=== PATIENT | male | born 1985 | race Two or more races ===

== ENCOUNTER 2022-04-17 11:33 | Emergency (ER) | payer OTHER ==
[~2022-04-17] VITALS: Ht 165.1 cm; Wt 86.4 kg
[2022-04-17] MEDS ORDERED: DONNATAL/LIDOCAINE/MAALOX 30 ML SUSP PO ONE (12:15)
[2022-04-17] MEDS ORDERED: BELLADONNA ALK/PHENOBARBITAL 5 ML UDC ONE (12:23)
[2022-04-17] MEDS ORDERED: LIDOCAINE VISC 2% SOLN 15 ML UDC ONE (12:24)
[2022-04-17] MEDS ORDERED: MAGNESIUM/ALUMINUM/SIMETHICONE 30 ML UDC ONE (12:24)
[2022-04-17] MEDS ORDERED: IOPAMIDOL 370 MG/ML 100 ML INFUS..BTL INJ ONE (12:54)
[2022-04-17] MEDS ORDERED: METRONIDAZOLE 500MG/NS 100ML 100 ML IV ONE ×2 (13:30→13:54)
[2022-04-17] MEDS ORDERED: SODIUM CHLORIDE 0.9% 1000ML 1,000 ML IV STA (13:30)
[2022-04-17] MEDS ORDERED: KETOROLAC TROMETHAMINE 30 MG/ML VIAL IV STA (13:32)
[2022-04-17] MEDS ORDERED: SODIUM CHLORIDE 0.9% 1000ML 1,000 ML ONE (13:54)
[2022-04-17] MEDS ORDERED: ONDANSETRON HCL INJ 2MG/ML 2ML 2 MG/ML VIAL IV STA (13:57)
[2022-04-17] MEDS ORDERED: ONDANSETRON HCL INJ 2MG/ML 2ML 2 MG/ML VIAL ONE (13:57)
[2022-04-17] MEDS ORDERED: KETOROLAC TROMETHAMINE 30 MG/ML VIAL ONE (14:13)
[2022-04-17] MEDS ORDERED: ONDANSETRON ODT4 MG PO (14:24)
[2022-04-17] MEDS ORDERED: PEPCID20 MG PO (14:24)
[2022-04-17] MEDS ORDERED: METRONIDAZOLE500 MG PO (14:24)
== END 2022-04-17 14:35 | disposition home or self-care (01) ==
LOC: FSED 12:21
DX: R10.13 Epigastric pain (principal); K52.9 Noninfective gastroenteritis and colitis, unspecified; R11.0 Nausea; K44.9 Diaphragmatic hernia without obstruction or gangrene
CPT/HCPCS: 74177; 80076; 81003; 85025; 96374; 96375; 99284; J1885; J2405; J7030; Q9967